=== PATIENT | female | born 1975 | race Caucasian/White ===

== ENCOUNTER 2019-10-29 00:47 | Day surgery (SDC) | payer BC, SELFPAY ==
[2019-10-25 12:34] VITALS: BMI 24.2
[2019-10-29 07:29] VITALS: BP 121/79; PULSE 71; RESP 16; TEMP 36.8; O2SAT 100; BMI 26.9
--- NOTE | 2019-10-29 07:30 | PM.HPGS ---
History of Present Illness History of Present Illness Consent: Risks, benefits, and alternatives have been discussed and questions answered. Patient agrees to proceed with procedure. Chief complaint: Neoplasm Screening Narrative: Carlyn Bedoya is a 44 year old W female referred for colonoscopy secondary to family hx of colon cancer in her father (50). Last colonoscopy was 5 yrs ago. Meds Home Medications and Allergies Home Medications Medication Instructions Recorded Confirmed Type No Home Medications 10/25/19 10/29/19 History Allergies Allergy/AdvReac Type Severity Reaction Status Date / Time No Known Allergies Allergy Unknown Unverified 10/29/19 07:28 Exam Const: Orientation/consciousness: patient oriented x3 Resp: Auscultation: clear to auscultation bilaterally Cardio: Rate: regular rate Rhythm: regular rhythm Heart sounds: no murmurs GI: GI Palp: Yes Soft to palpation, No Tenderness to palpation present (GI), Yes No hepatosplenomegaly present and No Palpable mass present Auscultation: normal bowel sounds Neuro: General: patient oriented x3 and no focal motor deficits Extrem: General: no pedal edema Assessment and Plan Additional Plan screening colonoscopy secondary to family hx of colon cancer in father (50)
[2019-10-29] MEDS: LACTATED RINGERS 1,000 ML 150 ML IV CONT (07:39)
--- NOTE | 2019-10-29 08:10 | WPDANESEPPF ---
Anes - Initial Pre Proc Eval Procedure: Operation Date: 10/29/19 08:30 Proposed Procedures p Screening Colonoscopy - Shiva Morales MD Date/Time: 10/29/19 08:10 Surgeon: Shiva Morales MD Pre Op Diagnosis: Neoplasm Screening Patient Data Age: 44 Gender: F Height: 5 ft 6 in Weight: 75.6 kg Last Vital Signs Temp 98.2 F 10/29/19 07:29 Pulse 71 10/29/19 07:29 Resp 16 10/29/19 07:29 BP 121/79 10/29/19 07:29 Pulse Ox 100 10/29/19 07:29 Allergies Allergy/AdvReac Type Severity Reaction Status Date / Time No Known Allergies Allergy Unknown Unverified 10/29/19 07:28 Home Medications Medication Instructions Recorded Confirmed Type No Home Medications 10/25/19 10/29/19 History Patient hx anesthesia problems: none Family hx anesthesia problems: none PMFSH Past Medical History Medical History (Updated 10/29/19 @ 08:08 by Williams Negron MD) Healthy adult Anes - Eval Final PreProcedure Day of Procedure 10/29/19 08:10 Patient weight: normal Heart: regular rate and rhythm Lungs: clear to auscultation Airway: Mallampati scale class II Neurological: alert and oriented Last oral intake: >/= 8 hours ASA classification: I Emergent: no Anesthetic plan: proceed Anesthesia type and monitoring: general GIVS and standard monitoring Informed Consent: The patient's anesthetic plan and its attendant risks and benefits were discussed with the patient/family/POA. Questions were solicited and answers provided to the satisfaction of the patient/family/POA.
[2019-10-29 08:54] VITALS: BP 90/57; PULSE 62; RESP 14; O2SAT 97
[2019-10-29 09:04] VITALS: BP 96/59; PULSE 68; RESP 16; O2SAT 97
[2019-10-29 09:14] VITALS: BP 100/58; PULSE 63; RESP 16; O2SAT 97
[2019-10-29 09:24] VITALS: BP 114/74; PULSE 66; RESP 16; O2SAT 97
== END 2019-10-29 09:26 | disposition home or self-care (01) ==
PROVIDERS: Visit Provider Internal Medicine Gastroenterology
PROC: 0DJD8ZZ Inspection of Lower Intestinal Tract, Via Natural or Artificial Opening Endoscopic (ICD-10-PCS; CPT 45378; principal; 2019-10-29 08:30)
DX: Z12.11 Encounter for screening for malignant neoplasm of colon (principal); Z80.0 Family history of malignant neoplasm of digestive organs
CPT/HCPCS: 45378; J2704; J7120